=== PATIENT | male | born 1990 | race Caucasian/White ===

== ENCOUNTER 2016-10-28 15:27 | Emergency (ER) | payer BC ==
[2016-10-28 15:42] VITALS: BP 152/80; PULSE 87; RESP 20; TEMP 99.3
== END 2016-10-28 16:08 | disposition left against medical advice (07) ==
LOC: EC 15:27
DX: R20.0 Anesthesia of skin (principal)
CPT/HCPCS: 99499

== ENCOUNTER 2018-10-18 03:35 | Observation (INO) | payer BC, OTHER ==
[2018-10-18] MEDS ORDERED: DIPH,PERTUS(ACELL)TETVAC-LF 0.5 ML VIAL IM ONE (03:49)
[2018-10-18] MEDS ORDERED: MORPHINE SULFATE 4 MG/ML SYRINGE IVP STA (03:57)
[2018-10-18] MEDS ORDERED: SODIUM CHLORIDE 0.9% 1,000 ML IV ONE (04:01)
--- NOTE | 2018-10-18 04:08 | XR ---
EXAM: XR Left Forearm, 2 Views CLINICAL HISTORY: ITS.REASON XR Reason: lac eval for foreign body TECHNIQUE: Frontal and lateral views of the left forearm. COMPARISON: No relevant prior studies available. Impression: Bones/joints: No acute fracture. No dislocation. Soft tissues: Large laceration in the soft tissue. There is a punctate 1 mm radiodense object adjacent to the olecranon.
[2018-10-18] MEDS ORDERED: LIDOCAINE 1%-EPI 1:100,000 20 ML VIAL SQ STA (04:16)
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
[2018-10-18] MEDS ORDERED: NALOXONE 0.4 MG/ML 1 ML VIAL IV PRN (04:18)
[2018-10-18 04:25] LABS: Basophils # (A) 0.1 k/uL (0-0.2); Basophils % (A) 1 %; Eosinophils # (A) 0.1 k/uL (0-0.7); Eosinophils % (A) 1 %; HCT 46.3 % (39.0-53.0); HGB 16.1 gm/dL (13.0-17.5); Lymphocytes # (A) 1.6 k/uL (1.0-4.8); Lymphocytes % (A) 18 %; MCH 28.4 pg (25.0-35.0); MCHC 34.8 g/dL (31.0-37.0); MCV 81.6 fL (80.0-100.0); Mean Platelet Volume 7.5; Monocytes # (A) 0.5 k/uL (0-1.0); Monocytes % (A) 6 %; Neutrophils # (A) 6.5 k/uL (1.3-7.7); Neutrophils % (A) 72 %; Platelet Count 218 k/uL (150-450); RBC 5.67 m/uL (4.30-5.90); RDW 13.5 % (11.5-15.5); WBC 9.1 k/uL (3.8-10.6)
[2018-10-18] MEDS ORDERED: MORPHINE SULFATE 4 MG/ML SYRINGE IV PRN (04:35)
[2018-10-18] MEDS ORDERED: ONDANSETRON 4 MG/2 ML VIAL IVP PRN (04:35)
[2018-10-18] MEDS ORDERED: HYDROmorphone 0.5 MG/0.5 ML SYRINGE IVP PRN ×4 (04:35→13:31)
[2018-10-18 04:37] LABS: ALT 21 U/L (21-72); AST 35 U/L (17-59); African American GFR (CKD) >90 (>60 ml/min/1.73 sqM); Albumin 4.7 g/dL (3.5-5.0); Alkaline Phosphatase 77 U/L (38-126); Anion Gap 13 mmol/L; Blood Urea Nitrogen 9 mg/dL (9-20); Calcium 9.4 mg/dL (8.4-10.2); Carbon Dioxide 22 mmol/L (22-30); Chloride 105 mmol/L (98-107); Glucose 99 mg/dL (74-99); Sodium 140 mmol/L (137-145); Total Bilirubin 0.7 mg/dL (0.2-1.3); Total Protein 8.1 g/dL (6.3-8.2)
[2018-10-18 04:39] LABS: INR 0.9 (<1.2); Partial Thromboplastin Time 22.7 sec (22.0-30.0)
[2018-10-18 04:40] LABS: Alcohol 136 mg/dL; Potassium 4.9 mmol/L (3.5-5.1)
[2018-10-18 04:45] LABS: Glucose,Whole Blood 100 mg/dL (75-99)
[2018-10-18 04:49] LABS: Appearance,Urine Clear (Clear); Bilirubin,Urine Negative (Negative); Blood,Urine Negative (Negative); Color,Urine Light Yellow; Glucose,Urine (UA) Negative (Negative); Ketones,Urine Negative (Negative); Leukocyte Esterase,Urine Negative (Negative); Nitrite,Urine Negative (Negative); PH, Urine 5.5 (5.0-8.0); Protein,Urine Negative (Negative); Specific Gravity,Urine 1.003 (1.001-1.035); Urobilinogen,Urine <2.0 mg/dL (<2.0)
[2018-10-18] MEDS: SODIUM CHLORIDE 0.9% 1,000 ML IV SCH ×2 (04:53→18:07)
[2018-10-18 05:05] LABS: Amphetamine Screen,Urine Detected (NotDetected); Barbiturate Screen,Urine Not Detected (NotDetected); Benzodiazepines Screen,Urine Not Detected (NotDetected); Cocaine Screen,Urine Not Detected (NotDetected); Methadone Screen, Urine Not Detected (NotDetected); Opiate Screen,Urine Detected (NotDetected); Oxycodone Screen, Urine Not Detected (NotDetected); Phencyclidine Screen,Urine Not Detected (NotDetected); Tricyclic Antidepressant,Urine Not Detected (NotDetected); Urn Cannabinoid Scrn Not Detected (NotDetected)
[2018-10-18 07:57] VITALS: RESP 16
[2018-10-18] MEDS ORDERED: NICOTINE 14MG/24HR PATCH TRANSDERM SCH (09:00)
[2018-10-18] MEDS ORDERED: DIAZEPAM 5 MG/ML 2 ML INJ IVP STA (09:37)
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
[2018-10-18] MEDS ORDERED: ONDANSETRON 4 MG/2 ML VIAL ONE (12:10)
[2018-10-18] MEDS ORDERED: MIDAZOLAM 2 MG/2 ML VIAL ONE (12:10)
[2018-10-18] MEDS ORDERED: HYDROmorphone (PF) 1 MG/ML ONE (12:10)
[2018-10-18] MEDS ORDERED: LIDOCAINE 1% INJ 10MG/ML (20 ML MDV) ONE (12:10)
[2018-10-18] MEDS ORDERED: DEXAMETHASONE SOD PHOS (MDV) 100 MG/10 ML VIAL ONE (12:10)
[2018-10-18] MEDS ORDERED: PROPOFOL 10 MG/ML 20 ML VIAL IV ONE (12:10)
[2018-10-18] MEDS ORDERED: IV FLUID CONTINUATION 1,000 ML IV ONE (12:12)
[2018-10-18] MEDS ORDERED: LACTATED RINGERS 1,000 ML IV SCH (12:30)
[2018-10-18] MEDS ORDERED: ceFAZolin 3,000 MG in SODIUM CHLORIDE 0.9% IRRIGATIO 3,000 ML IRRIGATION ONE (12:37)
[2018-10-18 13:29] VITALS: TEMP 97.8
[2018-10-18] MEDS ORDERED: HYDROmorphone 1 MG/ML 1 ML SYRINGE IVP PRN (13:31)
[2018-10-18] MEDS: LACTATED RINGERS 1,000 ML IV SCH ×2 (13:47→23:21)
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
[2018-10-18] MEDS: HYDROcodone/APAP 7.5-325MG 1 EACH TAB PO PRN ×2 (15:14→22:31)
[2018-10-18 16:08] VITALS: BP 138/85; PULSE 77
== END 2018-10-18 23:34 | disposition home or self-care (01) ==
LOC: EC 03:35 → 4SSUR 04:38
PROVIDERS: ADMIT Orthopaedic Surgery; ATTEND Orthopaedic Surgery
DX: S51.812A Laceration without foreign body of left forearm, initial encounter (principal); W22.09XA Striking against other stationary object, initial encounter; F90.9 Attention-deficit hyperactivity disorder, unspecified type; K21.9 Gastro-esophageal reflux disease without esophagitis; Z79.899 Other long term (current) drug therapy; F17.210 Nicotine dependence, cigarettes, uncomplicated; Z23 Encounter for immunization
CPT/HCPCS: 13121; 13122 ×3; 90471; 99291; 36415; 86900; 86901; 80053; 83605; 84484; 85025; 85610; 85730; 86850; 81003; 80306; 80320; 73090; 90715; G0378; S4990; J2250; J2270; J3360; J0690 ×2; J2405; J2001; J1170 ×2; J1100; J2704

== ENCOUNTER → 2024-02-13 | Outpatient (CLI) | payer OTHER ==
--- NOTE | 2024-02-14 18:45 | US ---
EXAMINATION TYPE: US thyroid st tissue head/neck DATE OF EXAM: 02/13/2024 COMPARISON: NONE CLINICAL INDICATION: Male, 33 years old with history of R220 LOCALIZED SWELLING MASS; Patient feels l ump on the right posterior head x 2-3 weeks. Patient does not feel pain. TECHNIQUE: Scanned posterior right head at area of concern. FINDINGS: Isoechoic area seen at patient's palpable area of concern: 4.1 x 3.9 x 1.0 cm. IMPRESSION: Irregular shaped area in the right head possibly representing muscle versus a lipoma exac t location is difficult given images only. Palpable marker placement CT recommended for further evalu ation. [facility], , 02/14/2024 6:43 PM
== END | disposition home or self-care (01) ==
LOC: RADUSWWP 16:18
PROVIDERS: ATTEND Family Medicine
DX: R22.0 Localized swelling, mass and lump, head (principal)
CPT/HCPCS: 76536

== ENCOUNTER → 2024-03-06 | Day surgery (SDC) | payer OTHER ==
[~2024-03-06] MED LIST: HYDROmorphone 0.5 MG/0.5 ML SYRINGE IVP PRN; LACTATED RINGERS 1,000 ML IV SCH; MIDAZOLAM 2 MG/2 ML VIAL IV PRN; MIDAZOLAM 2 MG/2 ML VIAL ONE; PROPOFOL 10 MG/ML 20 ML VIAL IV ONE; Pre Op ABX Message 1 EACH MISC MISCELLANE ONE; fentaNYL (PF) 50 MCG/ML 2 ML AMP ONE
[2024-03-06] MEDS: SODIUM CHLORIDE 0.9% 500 ML 500 ML IV ONE (06:58)
[2024-03-06] MEDS: ACETAMINOPHEN TAB 500 MG TAB PO PRN (07:03)
[2024-03-06] MEDS: ONDANSETRON 4 MG/2 ML VIAL IVP ONE (07:04)
[2024-03-06] MEDS: DEXAMETHASONE SOD PHOSPHATE 4 MG/ML 1 ML VIAL IV ONE (07:05)
[2024-03-06] MEDS: FAMOTIDINE 20 MG/2 ML VIAL IV STA (07:06)
[2024-03-06] MEDS: HEPARIN SODIUM,PORCINE 5,000 UNIT/ML 1 ML VIAL SQ PRN (07:06)
[2024-03-06] MEDS: SCOPOLAMINE 1 MG/72 HR PATCH TRANSDERM ONE (07:07)
[2024-03-06] MEDS: LIDOCAINE 1%-EPI 1:100,000 20 ML VIAL SQ ONE (08:06)
--- NOTE | 2024-03-06 08:20 | P.OP ---
Date of Procedure: 03/06/24 Preoperative Diagnosis: Posterior scalp lipoma 5 cm Postoperative Diagnosis: Posterior right scalp lipoma 5 cm Procedure(s) Performed: Excision of posterior scalp lipoma Anesthesia: EDDIE Surgeon: Chaitanya Freeman Estimated Blood Loss (ml): 5 Pathology: other (Lipoma) Condition: stable Disposition: PACU Description of Procedure: The patient was placed on the operative table in the supine position. He received general anesthesia. His scalp was then prepped and draped you sterile fashion after the patient was appropriate position. The area was anesthetized 1% local Xylocaine. The skin incised over the lipoma. Then using blunt sharp/electrocautery the lipoma was dissected free. Lipoma is approximately 5 x 2 cm. Hemostasis achieved electrocautery. The skin was then closed with interrupted 2-0 Vicryl suture. Patient tolerated well. Sent to recovery room in stable condition.
[2024-03-06 08:30] VITALS: TEMP 98.2
[2024-03-06 09:34] VITALS: BP 120/72; PULSE 67; RESP 16
== END | disposition home or self-care (01) ==
LOC: OR 06:11
PROVIDERS: ATTEND Surgery
DX: D17.0 Benign lipomatous neoplasm of skin and subcutaneous tissue of head, face and neck (principal); K21.9 Gastro-esophageal reflux disease without esophagitis; F90.9 Attention-deficit hyperactivity disorder, unspecified type; F41.9 Anxiety disorder, unspecified; F41.0 Panic disorder [episodic paroxysmal anxiety]; F17.210 Nicotine dependence, cigarettes, uncomplicated; Z79.899 Other long term (current) drug therapy; Z98.890 Other specified postprocedural states
CPT/HCPCS: 21012; J2250; J1644; J1100; J2405; J3010; J3490; J2704; 88304